=== PATIENT | male | born 1985 | race Caucasian/White ===

== ENCOUNTER 2018-07-17 23:39 | Emergency (ER) | payer OTHER ==
[2018-07-18] MEDS ORDERED: ASPIRIN 81 MG TABLET, CHEWABLE PO ONE (00:38)
--- NOTE | 2018-07-18 00:41 | ER Document Report ---
ED Medical Screen (RME) - General Chief Complaint: Chest Pain Stated Complaint: CHEST PAINS Time Seen by Provider: 07/18/18 00:38 Primary Care Provider: LUIS CARLOS HILLMAN NP [Primary Care Provider] - Follow up as needed Notes: Patient is a 33-year-old male presents to the emergency department for generalized chest pressure. States the chest pressure started about 2 hours, while driving. States he is also noted numbness or "weird feeling" in his left arm. Patient states he was to this facility multiple years ago for generalized chest pain and palpitations. States at that time he was told that his CK was elevated and inevitably left the hospital AGAINST MEDICAL ADVICE. Patient states that that episode he did have extensive PT and will work out the day before. States today's chest pain episodes he is noticed no change in his physical activity. GENERAL: Alert, interacts well. No acute distress. LUNGS: Clear to auscultation bilaterally, no wheezes, rales, or rhonchi. No respiratory distress. HEART: Regular rate and rhythm. No murmur I have greeted and performed a rapid initial assessment of this patient. A comprehensive ED assessment and evaluation of the patient, analysis of test results and completion of the medical decision making process will be conducted by additional ED providers. TRAVEL OUTSIDE OF THE [place] IN LAST 30 DAYS: No - Related Data Allergies/Adverse Reactions: No Known Drug Allergies Allergy (Verified 10/18/11 22:59) Past Medical History - Immunizations Hx Diphtheria, Pertussis, Tetanus Vaccination: Yes Physical Exam - Vital signs Vitals: Temp Pulse Resp BP Pulse Ox 98.1 F 63 16 134/83 H 100 07/18/18 00:07 07/18/18 00:07 07/18/18 00:07 07/18/18 00:07 07/18/18 00:07 Course - Vital Signs Vital signs: Temp Pulse Resp BP Pulse Ox 98.1 F 63 16 134/83 H 100 07/18/18 00:07 07/18/18 00:07 07/18/18 00:07 07/18/18 00:07 07/18/18 00:07 Doctor's Discharge - Discharge Referrals: LUIS CARLOS HILLMAN NP [Primary Care Provider] - Follow up as needed
--- NOTE | 2018-07-18 01:14 | RADIOLOGY REPORT (SQ) ---
EXAM DESCRIPTION: [facility]: XR CHEST 1 VIEW CLINICAL HISTORY: 33 years Male, CP COMPARISON: 10/18/2011 FINDINGS: Lungs are clear, with no focal infiltrate, pneumothorax, or pleural effusion. Mediastinum is within normal limits for this positioning. Bony structures are unremarkable. IMPRESSION: 1. No acute pulmonary findings.
[2018-07-18 01:44] LABS: ABSOLUTE MONOCYTES (AUTO) 0.8 10^3/uL (0.1-1.4); ABSOLUTE NEUT (AUTO) 3.2 10^3/uL (1.7-8.2); BASOPHILS % (AUTO) 0.5 % (0-2); HEMATOCRIT 45.5 % (37.9-51.0); HEMOGLOBIN 15.4 g/dL (13.5-17.0); LYMPHOCYTES % (AUTO) 19.5 % (13-45); MEAN CORPUSCULAR HGB CONC 33.9 g/dL (32.0-36.0); MEAN CORPUSCULAR VOLUME 92 fl (80-97); MONOCYTES % (AUTO) 15.2 % (3-13); PLATELET COUNT 184 10^3/uL (150-450); RED BLOOD COUNT 4.98 10^6/uL (4.35-5.55); RED CELL DISTRIBUTION WIDTH 13.3 % (11.5-14.0); SEGMENTED NEUTROPHILS % (AUTO) 63.8 % (42-78); TOTAL CELLS COUNTED % (AUTO) 100 %
[2018-07-18 02:03] LABS: ALANINE AMINOTRANSFERASE 45 U/L (21-72); ALBUMIN 4.8 g/dL (3.5-5.0); ALKALINE PHOSPHATASE 56 U/L (38-126); ANION GAP 11 (5-19); ASPARTATE AMINO TRANSFERASE 39 U/L (17-59); BILIRUBIN,DIRECT 0.2 mg/dL (0.0-0.4); BILIRUBIN,TOTAL 0.6 mg/dL (0.2-1.3); BLOOD UREA NITROGEN 15 mg/dL (7-20); CALCIUM 10.1 mg/dL (8.4-10.2); CARBON DIOXIDE 29 mmol/L (22-30); CHLORIDE 103 mmol/L (98-107); CREATINE KINASE 261 U/L (55-170); GLUCOSE 103 mg/dL (75-110); POTASSIUM 5.2 mmol/L (3.6-5.0); SODIUM 142.7 mmol/L (137-145); TOTAL PROTEIN 7.5 g/dL (6.3-8.2)
[2018-07-18 02:13] LABS: CREATINE KINASE MB 0.79 ng/mL (<4.55)
[2018-07-18 02:14] LABS: TROPONIN I < 0.012 ng/mL
[2018-07-18] MEDS ORDERED: ASPIRIN 81 MG TABLET, CHEWABLE ONE (03:32)
[2018-07-18] MEDS ORDERED: RINGERS SOLUTION,LACTATED 1,000 ML IV ONE (04:03)
[2018-07-18] MEDS ORDERED: SODIUM POLYSTYRENE SULFONATE 15 GM/60 ML PO ONE (04:04)
[2018-07-18] MEDS ORDERED: ACETAMINOPHEN 325 MG TABLET PO ONE (04:21)
--- NOTE | 2018-07-18 06:21 | ER Document Report ---
ED General - General Chief Complaint: Chest Pain Stated Complaint: CHEST PAINS Time Seen by Provider: 07/18/18 00:38 Primary Care Provider: LUIS CARLOS HILLMAN NP [NURSE PRACTITIONER] - Follow up as needed Notes: Patient is a 33-year-old male presents to the emergency department for generalized chest pressure. States the chest pressure started about 2 hours, while driving. States he is also noted numbness or "weird feeling" in his left arm. Patient states he was to this facility multiple years ago for generalized chest pain and palpitations. States at that time he was told that his CK was elevated and inevitably left the hospital AGAINST MEDICAL ADVICE. Patient states that that episode he did have extensive PT and was working out the day before. States today's chest pain episodes he is noticed no change in his physical activity. Denies shortness of breath, nausea, vomiting, diarrhea, abdominal pain. States this time he no longer has chest pain/pressure only a generalized headache. Patient is denying any history of sudden cardiac arrest in early age in his family. TRAVEL OUTSIDE OF THE [place] IN LAST 30 DAYS: No - Related Data Allergies/Adverse Reactions: No Known Drug Allergies Allergy (Verified 10/18/11 22:59) Past Medical History - General Information source: Patient - Social History Smoking Status: Never Smoker Chew tobacco use (# tins/day): Yes Drug Abuse: None Family History: Reviewed & Not Pertinent Patient has suicidal ideation: No Patient has homicidal ideation: No Renal/ Medical History: Denies: Hx Peritoneal Dialysis - Immunizations Hx Diphtheria, Pertussis, Tetanus Vaccination: Yes Hx Pneumococcal Vaccination: 02/19/00 Review of Systems - Review of Systems Constitutional: denies: Fever EENT: No symptoms reported Cardiovascular: See HPI Respiratory: See HPI Gastrointestinal: No symptoms reported Genitourinary: No symptoms reported Male Genitourinary: No symptoms reported Musculoskeletal: No symptoms reported Skin: No symptoms reported Hematologic/Lymphatic: No symptoms reported Neurological/Psychological: No symptoms reported Physical Exam - Vital signs Vitals: Temp Pulse Resp BP Pulse Ox 98.1 F 63 16 134/83 H 100 07/18/18 00:07 07/18/18 00:07 07/18/18 00:07 07/18/18 00:07 07/18/18 00:07 - Notes Notes: GENERAL: Alert, interacts well. No acute distress. HEAD: Normocephalic, atraumatic. EYES: Pupils equal, round, and reactive to light. Extraocular movements intact. ENT: Oral mucosa moist, tongue midline. NECK: Full range of motion. Supple. Trachea midline. LUNGS: Clear to auscultation bilaterally, no wheezes, rales, or rhonchi. No respiratory distress. HEART: Regular rate and rhythm. No murmur Chest: No crepitus felt, no erythema or ecchymosis noted anterior posterior chest wall. Pain is not elicited upon deep palpation or inspiration. ABDOMEN: Soft, non-tender. Non-distended. Bowel sounds present in all 4 quadrants. EXTREMITIES: Moves all 4 extremities spontaneously. No edema, normal radial and dorsalis pedis pulses bilaterally. No cyanosis. BACK: no cervical, thoracic, lumbar midline tenderness. No saddle anesthesia, normal distal neurovascular exam. NEUROLOGICAL: Alert and oriented x3. Normal speech. cranial nerves II through XII grossly intact PSYCH: Normal affect, normal mood. SKIN: Warm, dry, normal turgor. No rashes or lesions noted. Course - Re-evaluation Re-evalutation: 07/18/18 06:18 Laboratory 07/18/18 07/18/18 07/18/18 01:28 01:28 01:28 WBC 5.0 RBC 4.98 Hgb 15.4 Hct 45.5 MCV 92 MCH 31.0 MCHC 33.9 RDW 13.3 Plt Count 184 Seg Neutrophils % 63.8 Lymphocytes % 19.5 Monocytes % 15.2 H Eosinophils % 1.0 Basophils % 0.5 Absolute Neutrophils 3.2 Absolute Lymphocytes 1.0 Absolute Monocytes 0.8 Absolute Eosinophils 0.0 Absolute Basophils 0.0 Sodium 142.7 Potassium 5.2 H Chloride 103 Carbon Dioxide 29 Anion Gap 11 BUN 15 Creatinine 0.91 Est GFR ( Amer) > 60 Est GFR (Non-Af Amer) > 60 Glucose 103 Calcium 10.1 Total Bilirubin 0.6 Direct Bilirubin 0.2 Neonat Total Bilirubin Not Reportable Neonat Direct Bilirubin Not Reportable Neonat Indirect Bili Not Reportable AST 39 ALT 45 Alkaline Phosphatase 56 Creatine Kinase 261 H CK-MB (CK-2) 0.79 Troponin I < 0.012 Total Protein 7.5 Albumin 4.8 Chest X-Ray 07/18/18 00:38 IMPRESSION: 1. No acute pulmonary findings. Patient's EKG shows a sinus rhythm rate of 73, QTc 441, incomplete right bundle branch block. This is somewhat change from patient's EKG on 10/19/2011. EKG 10/19/2011 shows sinus bradycardia rate of 46, QTc 389, no ST segment elevations or depressions noted I have discussed this case and EKG at length with my attending Dr. Talbot. Dr. Talbot was concern for Brugada syndrome. Dr. Talbot's recommendation is to have the patient follow-up with cardiology in 24 to 48 hours. Discussed patient's continued to deny chest pain or pressure. Troponin negative. No history of sudden cardiac in his family. Pain was not upon exertion. Pain was upon sitting in his car. Dr. Talbot's recommendations is for discharge with close follow-up with cardiology. Patient is in a grants with this plan. - Vital Signs Vital signs: Temp Pulse Resp BP Pulse Ox 98.1 F 63 19 115/78 100 07/18/18 00:07 07/18/18 00:07 07/18/18 05:02 07/18/18 05:02 07/18/18 05:08 - Laboratory Result Diagrams: 07/18/18 01:28 07/18/18 01:28 Laboratory results interpreted by me: 07/18/18 07/18/18 01:28 01:28 Monocytes % 15.2 H Potassium 5.2 H Creatine Kinase 261 H Discharge - Discharge Clinical Impression: Chest pain Qualifiers: Chest pain type: unspecified Qualified Code(s): R07.9 - Chest pain, unspecified Condition: Stable Disposition: HOME, SELF-CARE Instructions: Chest Pain of Unclear Cause ([facility]) Additional Instructions: As we discussed you have been seen and treated in the emergency department for your chest pressure. Today's work-up is benign. Your EKG does show some subtle changes. As we discussed we are concerned for Brugada syndrome. Please make sure you follow-up with cardiology within the next 24 to 48 hours. Phone numbers will be provided in this packet. Please also immediately return to the emergency room should your chest pain or pressure return. Please also return to the emergency room for any other concerns. Forms: Return to Work Referrals: ZAIDA CHAPPELL MD [ACTIVE STAFF] - Follow up as needed
[2018-07-18 06:45] VITALS: BP 117/76
--- NOTE | 2018-07-18 19:25 | EKG REPORT ---
SEVERITY:- ABNORMAL ECG - SINUS RHYTHM RIGHT BUNDLE BRANCH BLOCK : Confirmed by: Stephenie Estrada MD 18-Jul-2018 19:24:54
== END 2018-07-18 06:58 | disposition home or self-care (01) ==
LOC: ER 23:39
DX: R07.9 Chest pain, unspecified (principal); R20.0 Anesthesia of skin; R51 Headache
CPT/HCPCS: 93005; 99285; 96360; 96361; 36415; 82553; 82550; 85025; 80053; 84484; 71045; 93010; J7120